=== PATIENT | male | born 1935 | race Caucasian/White ===

== ENCOUNTER 2024-04-16 02:34 | Inpatient (IN) | payer OTHER, MEDICAID ==
[~2024-04-16] VITALS: Ht 172.7 cm; Wt 75.1 kg
[~2024-04-16 02:34] MED LIST: CHOL200018 PO; ISOS30TA68 PO; LISI5TAB PO; OMEP10CA5 PO
[2024-04-16 03:40] LABS: BASOPHILS % (AUTO) 0.7 % (0.0-2.0); EOSINOPHILS % (AUTO) 1.2 % (1.0-6.0); HEMATOCRIT 34.6 % (41-53); HEMOGLOBIN 11.5 g/dL (13.5-17.5); LYMPHOCYTES # (AUTO) 1.2 K/uL (1.0-4.8); LYMPHOCYTES % (AUTO) 6.4 % (22.0-44.0); MEAN CORPUSCULAR HEMOGLOBIN 32.3 pg (26.0-34.0); MEAN CORPUSCULAR HGB CONC 33.1 G/dL (31.0-37.0); MEAN CORPUSCULAR VOLUME 98 fL (80-100); MONOCYTES # (AUTO) 0.5 K/uL (0.1-1.0); MONOCYTES % (AUTO) 2.9 % (2.0-9.0); NEUTROPHILS # (AUTO) 16.5 K/uL (1.8-7.7); PLATELET COUNT (AUTO) 177 K/uL (150-450); RED BLOOD CELL COUNT(AUTO) 3.54 MIL/uL (4.50-5.90); RED CELL DISTRIBUTION WIDTH 16.3 % (11.5-14.5); WHITE BLOOD COUNT (AUTO) 18.6 K/uL (4.5-11.0)
[2024-04-16 03:45] LABS: ANION GAP 11 mmol/L (8-16); CALCIUM, TOTAL 8.4 mg/dL (8.8-10.5); CARBON DIOXIDE 24 mmol/L (22-29); CHLORIDE 107 mmol/L (98-107); GLOMERULAR FILTR. RATE CALC 36 mL/min (>60); GLUCOSE,RANDOM 110 mg/dL (70-110); POTASSIUM 3.9 mmol/L (3.5-5.1); SODIUM SERUM 142 mmol/L (136-145); UREA NITROGEN, BLOOD 37 mg/dL (7-18)
[2024-04-16 03:46] LABS: NEUTROPHILS % (AUTO) 88.8 % (40.0-70.0)
[2024-04-16 03:51] LABS: ALANINE AMINOTRANSFERASE 87 U/L (12-78); ALBUMIN 2.7 g/dL (3.4-5.0); ALKALINE PHOSPHATASE 190 U/L (46-116); ASPARTATE AMINOTRANSFERASE 64 U/L (15-37); BILIRUBIN,TOTAL 1.5 mg/dL (0.1-1.0); PROTHROMBIN TIME 10.8 SEC (9.4-11.6); TOTAL PROTEIN, SERUM 6.2 g/dL (6.4-8.2)
[2024-04-16 03:53] LABS: TROPONIN I-HIGH SENSITIVITY 60 ng/L (<76)
[2024-04-16 03:54] LABS: B-TYPE NATRIURETIC PEPTIDE 179 pg/mL (0-100); LACTIC ACID 1.7 mmol/L (0.4-2.0)
[2024-04-16] MEDS: 0.9% SODIUM CHLORIDE 10 ML SYRINGE IVP PRN (04:36)
[2024-04-16] MEDS: SODIUM CHLORIDE 0.9% 1,500 ML IV ONE (04:40)
[2024-04-16] MEDS: PIPERACILLIN/TAZO 3.375 GM/D5W 50 ML IV ONE (04:41)
[2024-04-16 05:17] LABS: INFLUENZA TYPE A NEGATIVE FOR TYPE A (NEGATIVE); INFLUENZA TYPE B NEGATIVE FOR TYPE B (NEGATIVE)
[2024-04-16] MEDS ORDERED: BISACODYL 10 MG RECTAL RECTAL SUPPOSITORY PR PRN (06:00)
[2024-04-16] MEDS ORDERED: ONDANSETRON HCL 4 MG/2 ML VIAL IVP PRN (06:00)
[2024-04-16] MEDS: LORazepam 2 MG/ML VIAL IVP ONE (07:29)
[2024-04-16] MEDS: SODIUM CHLORIDE 0.9% 1,000 ML IV ONE (07:29)
[2024-04-16] MEDS: VANCOMYCIN 1.5 GM/WATER(PEG) 300 ML IV ONE (07:30)
[2024-04-16] MEDS: ACETAMINOPHEN 1000 MG/ISO-OSM 100 ML IV ONE (07:34)
[2024-04-16 07:45] LABS: APPEARANCE,URINE CLEAR (CLEAR); BILIRUBIN,URINE NEGATIVE (NEGATIVE); COLOR,URINE LIGHT YELLOW (YELLOW); GLUCOSE, URINE (UA) NEGATIVE (NEGATIVE); KETONES,URINE NEGATIVE (NEGATIVE); LEUKOCYTE ESTERASE ,URINE NEGATIVE (NEGATIVE); NITRATE,URINE NEGATIVE (NEGATIVE); OCCULT BLOOD,URINE TRACE (NEGATIVE); PH,URINE 5.5 (5.0-8.0); PROTEIN,URINE 30-70 mg/dL (NEGATIVE); SPECIFIC GRAVITIY, URINE 1.016 (1.003-1.030); UROBILINOGEN,URINE <=1.0 mg/dL (<=1.0)
[2024-04-16 07:55] LABS: BACTERIA,URINE None Seen /HPF (None Seen); RBC,URINE None Seen /HPF (0-2); SQUAMOUS EPITHELIAL CELL,UR Few /LPF (None Seen); WBC,URINE None Seen /HPF (0-5)
[2024-04-16 08:39] LABS: COVID AG,FIA SOURCE NASAL SWAB
[2024-04-16] MEDS: PANTOPRAZOLE SODIUM 40 MG DR TABLET PO SCH (09:00)
[2024-04-16] MEDS: DOCUSATE SODIUM 100 MG CAPSULE PO SCH (09:00)
[2024-04-16 09:01] LABS: SARS-COV2 (COVID) ANTIGEN,FIA Negative (Negative)
[2024-04-16 10:44] VITALS: BP 115/54; PULSE 85; RESP 19; TEMP 98.2; O2SAT 97
[2024-04-16] MEDS: HEPARIN SODIUM,PORCINE 5,000 UNITS/ML VIAL SQ SCH (12:14)
[2024-04-16] MEDS: PIPERACILLIN/TAZO 3.375 GM/D5W 50 ML IV SCH (12:15)
[2024-04-16 16:28] VITALS: BP 126/69; PULSE 86; RESP 20; TEMP 98.3; O2SAT 97
[2024-04-16 20:34] VITALS: BP 146/73; PULSE 96; RESP 20; TEMP 98.3; O2SAT 95
[2024-04-17] VITALS (7 sets, daily range): BP systolic 149–250; BP diastolic 69–83; PULSE 89–102; RESP 18–20; TEMP 98–100.3; O2SAT 94–98
[2024-04-17 07:11] LABS: CALCIUM, TOTAL 8.8 mg/dL (8.8-10.5); CREATININE 1.71 mg/dL (0.60-1.30); POTASSIUM 3.9 mmol/L (3.5-5.1)
[2024-04-17] MEDS: VANCOMYCIN 750 MG/WATER(PEG) 150 ML IV SCH (09:23)
[2024-04-17] MEDS: AmLODIPine BESYLATE 5 MG TABLET PO SCH (12:16)
[2024-04-17 14:57] LABS: THYROID STIMULATING HORMONE 2.36 uIU/mL (0.36-3.74)
[2024-04-17] MEDS: ACETAMINOPHEN 325 MG TABLET PO PRN (20:27)
[2024-04-18] VITALS: BP 136/70; PULSE 88; RESP 17; TEMP 98.5; O2SAT 94
[2024-04-18 04:00] VITALS: BP 141/66; PULSE 77; RESP 18; TEMP 98.7; O2SAT 95
[2024-04-18] MEDS: LEVOTHYROXINE SODIUM 50 MCG TABLET PO SCH (05:59)
[2024-04-18 06:35] LABS: BASOPHILS % (AUTO) 0.3 % (0.0-2.0); EOSINOPHILS % (AUTO) 6.6 % (1.0-6.0); HEMOGLOBIN 12.1 g/dL (13.5-17.5); LYMPHOCYTES # (AUTO) 1.2 K/uL (1.0-4.8); LYMPHOCYTES % (AUTO) 9.7 % (22.0-44.0); MEAN CORPUSCULAR HEMOGLOBIN 31.9 pg (26.0-34.0); MEAN CORPUSCULAR HGB CONC 32.7 G/dL (31.0-37.0); MEAN CORPUSCULAR VOLUME 98 fL (80-100); MONOCYTES # (AUTO) 0.7 K/uL (0.1-1.0); MONOCYTES % (AUTO) 5.5 % (2.0-9.0); NEUTROPHILS # (AUTO) 9.5 K/uL (1.8-7.7); NEUTROPHILS % (AUTO) 77.9 % (40.0-70.0); PLATELET COUNT (AUTO) 197 K/uL (150-450); RED CELL DISTRIBUTION WIDTH 16.2 % (11.5-14.5); WHITE BLOOD COUNT (AUTO) 12.2 K/uL (4.5-11.0)
[2024-04-18 06:45] LABS: CALCIUM, TOTAL 8.7 mg/dL (8.8-10.5); CREATININE 1.62 mg/dL (0.60-1.30); POTASSIUM 3.4 mmol/L (3.5-5.1)
[2024-04-18 07:45] VITALS: BP 152/87; PULSE 81; RESP 19; TEMP 98.4; O2SAT 97
[2024-04-18] MEDS: VANCOMYCIN 1GM/WATER(PEG/NADA) 200 ML IV SCH (08:35)
[2024-04-18 11:15] VITALS: BP 143/74; PULSE 88; RESP 18; TEMP 98.2; O2SAT 98
[2024-04-18] MEDS ORDERED: SODIUM CHLORIDE 0.9% 250 ML IV ONE (11:18)
[2024-04-18] MEDS: POTASSIUM CHLORIDE 10 MEQ ER TABLET PO ONE (12:15)
[2024-04-18] MEDS ORDERED: DiphenhydrAMINE/ZINC ACET 30 GM CREAM TP PRN (14:30)
[2024-04-18 15:33] VITALS: BP 132/82; PULSE 92; RESP 19; TEMP 98; O2SAT 97
[2024-04-18 15:57] LABS: ALBUMIN 2.3 g/dL (3.4-5.0); BILIRUBIN,DIRECT 0.4 mg/dL (0.00-0.20); BILIRUBIN,TOTAL 1.5 mg/dL (0.1-1.0); TOTAL PROTEIN, SERUM 6.2 g/dL (6.4-8.2)
[2024-04-18 18:06] LABS: INFLUENZA A-RTPCR,COMBO NEGATIVE (NEGATIVE); INFLUENZA B-RTPCR,COMBO NEGATIVE (NEGATIVE); RESPIRATORY SYNCYTIAL VRS-PCR NEGATIVE (NEGATIVE); SARS COVID19 RTPCR, COMBO NEGATIVE (NEGATIVE)
[2024-04-18 20:00] VITALS: BP 141/71; PULSE 93; RESP 16; TEMP 98.1; O2SAT 98
[2024-04-19] VITALS (7 sets, daily range): BP systolic 144–170; BP diastolic 69–90; PULSE 87–99; RESP 18–19; TEMP 97.4–98.3; O2SAT 95–100
[2024-04-19 07:03] LABS: CALCIUM, TOTAL 8.6 mg/dL (8.8-10.5); CREATININE 1.51 mg/dL (0.60-1.30); POTASSIUM 3.6 mmol/L (3.5-5.1); VANCOMYCIN,RANDOM 17.8 mcg/mL (25.0-50.0)
[2024-04-19] MEDS: CeFAZolin 2 GM/DEXTROSE 50 ML IV SCH (17:14)
[2024-04-19] MEDS: QUEtiapine FUMARATE 25 MG TABLET PO SCH (20:58)
[2024-04-20 00:29] VITALS: BP 148/58; PULSE 85; RESP 18; TEMP 98.5; O2SAT 96
[2024-04-20 03:09] VITALS: BP 138/65; PULSE 85; RESP 18; TEMP 98.6; O2SAT 97
[2024-04-20 07:05] LABS: BASOPHILS % (AUTO) 0.6 % (0.0-2.0); EOSINOPHILS % (AUTO) 11.7 % (1.0-6.0); HEMATOCRIT 35.7 % (41-53); HEMOGLOBIN 11.9 g/dL (13.5-17.5); LYMPHOCYTES # (AUTO) 1.2 K/uL (1.0-4.8); LYMPHOCYTES % (AUTO) 13.6 % (22.0-44.0); MEAN CORPUSCULAR HEMOGLOBIN 32.4 pg (26.0-34.0); MEAN CORPUSCULAR HGB CONC 33.4 G/dL (31.0-37.0); MEAN CORPUSCULAR VOLUME 97 fL (80-100); MONOCYTES # (AUTO) 0.9 K/uL (0.1-1.0); MONOCYTES % (AUTO) 10.3 % (2.0-9.0); NEUTROPHILS # (AUTO) 5.5 K/uL (1.8-7.7); NEUTROPHILS % (AUTO) 63.8 % (40.0-70.0); PLATELET COUNT (AUTO) 210 K/uL (150-450); RED BLOOD CELL COUNT(AUTO) 3.68 MIL/uL (4.50-5.90); WHITE BLOOD COUNT (AUTO) 8.6 K/uL (4.5-11.0)
[2024-04-20 07:17] LABS: CALCIUM, TOTAL 8.6 mg/dL (8.8-10.5); CREATININE 1.54 mg/dL (0.60-1.30); POTASSIUM 3.5 mmol/L (3.5-5.1)
[2024-04-20 07:41] VITALS: BP 144/83; PULSE 86; RESP 18; TEMP 97.6; O2SAT 95
[2024-04-20 11:19] VITALS: BP 136/62; PULSE 84; RESP 18; TEMP 97.8; O2SAT 97
[2024-04-20 15:17] VITALS: BP 145/69; PULSE 96; RESP 18; TEMP 97.5; O2SAT 96
[2024-04-20 19:47] VITALS: BP 151/76; PULSE 91; RESP 18; TEMP 98.4; O2SAT 97
[2024-04-21 00:35] VITALS: BP 147/66; PULSE 96; RESP 20; TEMP 98.3; O2SAT 97
[2024-04-21 04:39] VITALS: BP 146/86; PULSE 80; RESP 20; TEMP 98.7; O2SAT 95
[2024-04-21 06:34] LABS: BASOPHILS % (AUTO) 0.6 % (0.0-2.0); EOSINOPHILS % (AUTO) 11.6 % (1.0-6.0); HEMATOCRIT 37.1 % (41-53); HEMOGLOBIN 12.5 g/dL (13.5-17.5); LYMPHOCYTES # (AUTO) 1.4 K/uL (1.0-4.8); LYMPHOCYTES % (AUTO) 13.9 % (22.0-44.0); MEAN CORPUSCULAR HEMOGLOBIN 32.6 pg (26.0-34.0); MEAN CORPUSCULAR HGB CONC 33.6 G/dL (31.0-37.0); MEAN CORPUSCULAR VOLUME 97 fL (80-100); MONOCYTES # (AUTO) 0.9 K/uL (0.1-1.0); MONOCYTES % (AUTO) 9.2 % (2.0-9.0); NEUTROPHILS # (AUTO) 6.3 K/uL (1.8-7.7); NEUTROPHILS % (AUTO) 64.7 % (40.0-70.0); PLATELET COUNT (AUTO) 223 K/uL (150-450); RED BLOOD CELL COUNT(AUTO) 3.82 MIL/uL (4.50-5.90); RED CELL DISTRIBUTION WIDTH 15.7 % (11.5-14.5); WHITE BLOOD COUNT (AUTO) 9.8 K/uL (4.5-11.0)
[2024-04-21 07:27] LABS: CALCIUM, TOTAL 8.5 mg/dL (8.8-10.5); CREATININE 1.56 mg/dL (0.60-1.30); POTASSIUM 3.4 mmol/L (3.5-5.1)
[2024-04-21 07:55] VITALS: BP 151/83; PULSE 90; RESP 19; TEMP 98.3; O2SAT 97
[2024-04-21 10:48] VITALS: BP 142/80; PULSE 87; RESP 18; TEMP 98; O2SAT 99
[2024-04-21 16:08] VITALS: BP 139/75; PULSE 91; RESP 20; TEMP 98.2; O2SAT 97
== END 2024-04-21 20:00 | DRG 871 ==
LOC: EMS 02:34 → EDH 07:50 → 5S 09:55
PROVIDERS: ADMIT Internal Medicine; ATTEND Internal Medicine
DX: A41.9 Sepsis, unspecified organism (principal); G92.8 Other toxic encephalopathy; N17.9 Acute kidney failure, unspecified; L03.114 Cellulitis of left upper limb; M48.55XA Collapsed vertebra, not elsewhere classified, thoracolumbar region, initial encounter for fracture; I13.0 Hypertensive heart and chronic kidney disease with heart failure and stage 1 through stage 4 chronic kidney disease, or unspecified chronic kidney disease; Z20.822 Contact with and (suspected) exposure to COVID-19; F03.90 Unspecified dementia, unspecified severity, without behavioral disturbance, psychotic disturbance, mood disturbance, and anxiety; E03.9 Hypothyroidism, unspecified; I50.9 Heart failure, unspecified; N18.9 Chronic kidney disease, unspecified; Z95.0 Presence of cardiac pacemaker
CPT/HCPCS: 0241U; 70486; 71045; 74176; 80048; 80053; 80076; 80202; 81001; 83605; 83880; 84145; 84443; 84484; 85025; 85610; 87040; 87081; 87481; 87804; 92610; 93005; 93971; 99285; G0378; J0131; J0690; J1644; J2060; J2543; J7030; J7050; 36415-L1; 36415-TC